=== PATIENT | female | born 2000 | race Two or more races ===

== ENCOUNTER 2022-12-23 00:34 | Emergency (ER) | payer OTHER ==
[~2022-12-23] VITALS: Ht 160 cm; Wt 56.7 kg
[2022-12-23] MEDS ORDERED: VISTARIL50 MG PO (04:24)
== END 2022-12-23 04:32 ==
LOC: ER 00:34
DX: F41.1 Generalized anxiety disorder (principal)

== ENCOUNTER 2023-10-01 21:18 | Emergency (ER) | payer OTHER ==
[~2023-10-01] VITALS: Ht 149.9 cm; Wt 66.7 kg
[~2023-10-01 21:18] MED LIST: VISTARIL50 MG PO
[2023-10-01 23:36] LABS: HEMOGLOBIN 11.2 g/dL (12.0-15.00); MEAN CELL VOLUME 80.1 fL (80.00-100.00); MEAN CORPUSCULAR HEMOGLOBIN 27.1 pg (27.00-32.0); MEAN CORPUSCULAR HGB CONC 33.9 g/dl (32.0-36.0); PLATELET COUNT 299 K/uL (150-450); RED BLOOD COUNT 4.12 M/uL (4.00-6.00); RED CELL DISTRIBUTION WIDTH 14.9 % (11.5-14.5)
[2023-10-01 23:37] LABS: PH,URINE 7.5 (5.0-8.0); URINE APPEARANCE Clear; URINE BILIRRUBIN Negative (NEGATIVE); URINE BLOOD Negative; URINE COLOR Yellow; URINE GLUCOSE Negative (NEGATIVE); URINE LEUKOCYTE Negative; URINE NITRATE Negative; URINE PROTEIN Negative (NEGATIVE); URINE UROBILINOGEN 0.2 E.U./dl
[2023-10-01 23:40] LABS: URINE BACTERIA 98.2 uL (0.0-1933); URINE RBC 16.9 uL (0.0-20.8); URINE WBC 2.1 uL (0.0-23.2)
[2023-10-01 23:51] LABS: INR 1.09; PARTIAL THROMBOPLASTIN TIME 25.9 SECONDS (22.0-34.0); PROTHROMBIN TIME 11.4 SECONDS (9.0-11.5)
[2023-10-01 23:59] LABS: CALCIUM 8.9 mg/dL (8.5-10.1); CREATININE SERUM 0.71 mg/dL (0.55-1.02); GFR 103.91; POTASSIUM 3.76 mEq/L (3.5-5.1)
== END 2023-10-02 02:22 | disposition home or self-care (01) ==
LOC: ER 21:18
PROVIDERS: General Practice
DX: O20.9 Hemorrhage in early pregnancy, unspecified (principal); Z3A.01 Less than 8 weeks gestation of pregnancy

== ENCOUNTER 2023-10-03 20:34 | Emergency (ER) | payer OTHER ==
[~2023-10-03] VITALS: Ht 149.9 cm; Wt 66.7 kg
[2023-10-03 21:29] LABS: HEMATOCRIT 32.4 % (36.0-45.00); HEMOGLOBIN 10.8 g/dL (12.0-15.00); MEAN CELL VOLUME 79.7 fL (80.00-100.00); MEAN CORPUSCULAR HEMOGLOBIN 26.6 pg (27.00-32.0); MEAN CORPUSCULAR HGB CONC 33.4 g/dl (32.0-36.0); PLATELET COUNT 309 K/uL (150-450); RED BLOOD COUNT 4.07 M/uL (4.00-6.00)
[2023-10-03 21:31] LABS: URINE APPEARANCE Cloudy; URINE BILIRRUBIN Negative (NEGATIVE); URINE BLOOD Large; URINE COLOR Yellow; URINE GLUCOSE Negative (NEGATIVE); URINE LEUKOCYTE Negative; URINE NITRATE Negative; URINE PROTEIN 30 (NEGATIVE)
[2023-10-03 21:35] LABS: URINE BACTERIA 498.9 uL (0.0-1933); URINE EPITHELIAL CELLS 13.4 uL (0.0-38.8); URINE RBC 148.3 uL (0.0-20.8); URINE WBC 17.4 uL (0.0-23.2)
[2023-10-03 21:59] LABS: CALCIUM 9.2 mg/dL (8.5-10.1); CREATININE SERUM 0.77 mg/dL (0.55-1.02); GFR 94.63; POTASSIUM 3.42 mEq/L (3.5-5.1)
== END 2023-10-04 00:21 | disposition home or self-care (01) ==
LOC: ER 20:34
PROVIDERS: General Practice
DX: O20.8 Other hemorrhage in early pregnancy (principal); Z3A.01 Less than 8 weeks gestation of pregnancy